=== PATIENT | female | born 1950 | race Hispanic/Latino ===

== ENCOUNTER → 2016-08-03 | Outpatient (CLI) | payer OTHER ==
--- NOTE | 2016-08-03 13:27 | Diagnostic Imaging Report ---
PROCEDURE: US Thyroid. TECHNIQUE: Multiple real-time grayscale images were obtained of the thyroid in various projections. INDICATION: Followup thyroid nodule. COMPARISON: 09/18/2015. DISCUSSION: The thyroid gland remains enlarged and heterogenous. The right thyroid measures 5.4 x 2.4 x 2.8 cm. The left thyroid measures 5.2 x 2.9 x 2.7 cm. Discrete nodule within the left thyroid gland measures 1.4 cm, stable. No internal color Doppler blood flow or suspicious microcalcifications identified. Coarse benign calcifications are present within the superior right thyroid gland, stable. IMPRESSION: 1. The thyroid remains enlarged and heterogenous with a dominant left thyroid nodule measuring 1.4 cm, stable. Recommend one-year sonographic followup to document further stability. Dictated by: Dictated on workstation # [id number]
== END ==
LOC: RAD 12:24
PROVIDERS: ATTEND Nurse Practitioner Family
DX: E04.9 Nontoxic goiter, unspecified (principal); R79.89 Other specified abnormal findings of blood chemistry
CPT/HCPCS: 76536

== ENCOUNTER → 2017-07-16 | Outpatient (CLI) | payer SELFPAY ==
--- NOTE | 2017-07-16 13:15 | Diagnostic Imaging Report ---
CLINICAL INDICATION: Patient with multinodular goiter, abnormal TSH. Followup exam. COMPARISONS: Ultrasound of the thyroid gland dated 08/03/2016. FINDINGS: THYROID NODULES: Multinodular appearance of the thyroid gland is again seen. A more defined measurable nodule on the isthmus is again seen. Given the differences in technique, it is not significantly changed in size and configuration. There is a larger more solid nodular component with a central predominantly hypoechoic nodular component within it. The larger nodular component measures 2.4 cm x 1.8 cm x 3.0 cm and the more central cystic area measures roughly 12 mm x 13 mm and is not significantly changed. Again noted a few small calcifications with posterior shadowing in the upper pole of the right thyroid gland. THYROID GLAND: Besides the thyroid nodules, the thyroid gland has normal size, shape and echogenicity. The right lobe measures 5.5 cm x 2.8 cm x 3.0 cm and the left lobe measures 6.3 cm x 3.0 cm x 3.0 cm in their three dimensions. ISTHMUS: Nodular enlargement of the isthmus is again seen. IMPRESSION: Given the differences in technique, there is no significant change to the multinodular thyroid gland. There is a more defined nodule in the isthmus region which has not significantly changed, as described above. Again seen small calcifications in the right upper thyroid gland region. Dictated by: Dictated on workstation # [id number]
== END ==
LOC: RAD 07:19
PROVIDERS: ATTEND Nurse Practitioner Family
DX: E04.2 Nontoxic multinodular goiter (principal)
CPT/HCPCS: 76536